=== PATIENT | male | born 1950 | race Caucasian/White ===

== ENCOUNTER 2017-01-23 08:08 | Emergency (ER) | payer MEDICARE ==
[2017-01-23 08:44] LABS: Urine Bilirubin Negative (NEGATIVE); Urine Blood 50 /ul (NEGATIVE); Urine Ketone Negative (NEGATIVE); Urine Nitrite Negative (NEGATIVE); Urine Protein Negative (NEGATIVE); Urine Specific Gravity <=1.005 SP.GR. (1.005-1.030); Urine Urobilinogen Normal (NORMAL); Urine pH 6.5 pH (5.0-7.0)
[2017-01-23 08:52] LABS: Urine Appearance Clear; Urine Bacteria 1+; Urine Color Yellow; Urine RBC None Seen /hpf (0-5); Urine WBC None Seen /hpf (0-5)
--- OUTSIDE RECORDS SUMMARY | 2017-01-23 09:07 | XMS REPORT | Continuity of Care Document ---
:1950 Author Organization [facility] ([facility]) Address [address] [place] [address] Phone [phone] Care Team Providers Name Role Phone Provider, No-Primary Care Primary Care Provider Unavailable Source Comments This disclosure is being made pursuant to the Care Everywhere program, applicable federal and state laws, and may not contain all informaitonavailable regarding this patient.[facility] ([facility]) Active Allergies and Adverse Reactions No Known Allergies Current Medications Prescription Sig. Disp. Refills Start Date End Date Status polyethylene glycol 3350 Take 17 g by mouth Active 17 gram packet daily as needed. fluticasone 50 Use 2 Sprays into Active mcg/Actuation nasal both nostrils daily spray as needed. omeprazole 40 mg enteric Take 40 mg by mouth Active coated capsule daily. latanoprost 0.005 % Instill 1 Drop onto Active ophthalmic solution both eyes every evening. calcium carbonate PO Take 500 mg by mouth Active daily. magnesium oxide 250 mg Take 250 mg by mouth Active tablet daily. Active Problems Not on file Most Recent Encounters Date Type Specialty Providers Description 01/12/2017 Hospital Encounter Hematology and Asher Copeland Dx: Malignant Oncology OMD neoplasm of ascending colon (Primary Dx) Social History Tobacco Use Types Packs/Day Years Used Date Never Assessed Last Filed Vital Signs Vital Sign Reading Time Taken Blood Pressure 150/88 01/12/2017 11:34 AM [employer] Pulse 78 01/12/2017 11:34 AM [employer] Temperature 37 C (98.6 F) 01/12/2017 11:34 AM [employer] Respiratory Rate 16 01/12/2017 11:34 AM [employer] Height 1.626 m (5' 4") 01/12/2017 11:34 AM [employer] Weight 46.72 kg (103 lb) 01/12/2017 11:34 AM [employer] Body Mass Index 17.67 01/12/2017 11:34 AM [employer] Oxygen Saturation 97% 01/12/2017 11:34 AM [employer] Plan of Care Health Maintenance Due Date Last Done Comments HCV Screening 1950 Hepatitis B Vaccine (1 of 3 - Primary Series) 1950 Tdap Vaccine 1962 Lipid Disorder Screening 1969 Td Vaccine 1969 Colonoscopy 05/13/2001 Prostate Cancer Screening 2001 Zoster Vaccine 2011 Pneumococcal Vaccine (1 of 2 - PCV13) 2016 Influenza Vaccine: Seasonal (#1) 06/30/2016 Results from Last 3 Months Not on file
--- NOTE | 2017-01-23 09:15 | ERNOTE ---
ER Male HPI Stated Complaint: PAIN AT TOP OF GENITALS ER Male: penile discharge Time Seen by Provider: 01/23/17 08:53 Source: patient Immunizations: IMMUNIZATION HX Immunizations Up to Date Yes History of Influenza Vaccine Yes Allergies/Adverse Reactions: Allergies No Known Allergies Allergy (Verified 01/23/17 08:28) Home Medications: HOME MEDICATIONS Calcium Carbonate [Rcpw-Mas-210] 500 mg PO TID #90 tablet 10/18/16 [Last Taken Unknown] Fluticasone Propionate [Flonase] 1 spray NS DAILY 10/18/16 [Last Taken Unknown] Magnesium 250 mg PO TID #90 tablet 10/18/16 [Last Taken Unknown] Omeprazole [Prilosec] 20 mg PO DAILY 10/18/16 [Last Taken Unknown] Polyethylene Glycol 3350 [Miralax] 17 gm PO DAILY 01/23/17 [Last Taken Unknown] - History of Present Illness Narrative: The patient is here for multiple complaints. He had a TURP a year ago and has had problems intermittently with incontinence and difficulty initiating urination. He also had 'white stuff' come out of his penis when he bears down for a bowel movement as well as intermittent pain in the tip of his penis (none currently). He was supposed to see Dr Denton in November for follow up but did not make it to the appointment due to transportation issues. He has not called Dr Denton or his PCP regarding these concerns. He has been treated for coloncancer in the past, had a follow up with an oncologist two days ago and is scheduled for a six months follow up. He is scared that he might have pancreas cancer like his mother or lung cancer like his father. Review of Systems - Review of Systems Constitutional: Present: malaise. Absent: recent illness, weight loss ENT: Absent: nose congestion, sore throat Respiratory: Absent: shortness of breath Cardiology: Absent: chest pain Gastrointestinal/Abdominal: Absent: nausea, vomiting, abdominal pain Genitourinary: Present: See HPI Musculoskeletal: Absent: muscle pain Skin: Absent: rash Neurological: Absent: headache - Patient's Past Medical History Patient History - Medical: Alcohol Abuse, Anxiety, Depression Patient History - Cardiac/Respiratory: Hypertension Patient History - Cancer: Colon Patient History - Surgical Procedures: Cancer Surgery, Urology - Family History Mother Family History - Cancer: Pancreatic - Social History Living Situations: home Psych History: Hx of Depression Smoking Status: Current every day smoker Alcohol Use: occasionally - 3 beer qod Drug Use: none - Immunizations Immunizations Up to Date: Yes History of Influenza Vaccine: Yes Physical Exam - Physical Exam General Appearance: Present: wd/wn, alert, no apparent distress, anxious Ears, Nose, Throat: Present: normal pharynx Respiratory: Present: no respiratory distress, normal breath sounds, no accessory muscle use Cardiovascular/Chest: Present: regular rate, rhythm, no murmur Gastrointestinal/Abdominal: Present: normal bowel sounds, nontender, nondistended, soft Male Genitals Exam: Present: normal genitalia. Absent: epididymal tenderness, testicular tenderness (R), testicular tenderness (L), urethral discharge Neurological Exam: Present: alert, oriented, normal mood/affect Skin Exam: Present: normal color, warm/dry ED Progress - Results and Orders Patient's Lab Results:: I have reviewed the patient's lab results. - Vital Signs Patient's Vital Signs:: I have reviewed the patient's vital signs. Vital Signs: Vital Signs 01/23/17 08:23 Temperature 34.9 C L Pulse Rate 81 Respiratory 18 Rate Blood Pressure 174/101 O2 Sat by Pulse 100 Oximetry - Progress/Reassessment Chief Complaint: Genitourinary Problem Progress Note-Subjective: 01/23/17 10:48 discussed results with patient follow up scheduled with Dr Denton and transport with hospital van Departure Clinical Impression: Dysuria - Departure Disposition: Home self-care Condition: Good Instructions: Dysuria Referrals: Asher Denton MD [Associate] - 02/06/17 10:00 am
[2017-01-23 09:26] LABS: Hematocrit 40.1 % (42.0-52.0); Hemoglobin 14.3 gm/dL (13.5-18.0); Mean Cell Volume 93.7 fl (78-100); Mean Corpuscular Hemoglobin 33.4 pg (27-31); Mean Corpuscular Hgb Conc 35.7 g/dl (32-36); Mean Platelet Volume 9.2 fl (6.0-9.5); Neutrophil # 8.1 K/mm3 (1.3-6.0); Neutrophil % 82.4 % (42-75.0); Platelet Count 218 K/mm3 (150-450); Red Blood Count 4.28 M/mm3 (4.7-6.0); Red Cell Distribution Width 11.9 % (11.5-14.0); White Blood Count 9.9 K/mm3 (4.0-10.5)
[2017-01-23 09:27] VITALS: BP 154/85
[2017-01-23 09:38] LABS: Albumin * 3.8 gm/dl (3.4-5.0); BUN/Creatinine Ratio 9.7 (9.0-21.6); Bilirubin, Total 1.4 mg/dL (0.0-1.1); Ca. Corrected For Albumin 8.5 mg/dL (8.4-10.2); Calcium * 8.7 mg/dL (7.9-10.9); Carbon Dioxide 26.7 mmol/L (24-32.6); Potassium 3.7 mmol/L (3.4-4.6); Total Protein 7.1 gm/dL (6.2-8.2)
== END 2017-01-23 11:00 | disposition home or self-care (01) ==
LOC: ER 08:08
DX: R30.0 Dysuria (principal); Z72.0 Tobacco use; Z85.038 Personal history of other malignant neoplasm of large intestine